=== PATIENT | female | born 1975 | race Caucasian/White ===

== ENCOUNTER 2024-02-26 16:02 | Inpatient (IN) | payer BC ==
[2024-02-26 17:18] LABS: #Basophils 0.13 10x3/uL (0.0-0.2); #Eosinphils 0.43 10x3/uL (0.0-0.5); #Monocytes 0.94 10x3/uL (0.0-1.1); #Neutrophils 8.85 10x3/uL (1.5-8.4); %Basophils 0.9 % (0.0-2.0); %Eosinophils 2.8 % (0.0-6.0); %Lymphocytes 31.4 % (18.0-47.0); %Monocytes 6.2 % (0.0-10.0); %Neutrophils 58.4 % (40.0-75.0); Hematocrit 43.6 % (34.9-44.5); Hemoglobin 15.2 g/dL (12.0-15.5); Mean Corpuscular HGB CONC 34.9 g/dL (32.0-36.0); Mean Corpuscular Hemoglobin 28.8 pg (27.0-33.0); Mean Corpuscular Volume 82.7 fl (81.6-98.3); Mean Platelet Volume 11.7 fl (7.4-10.4); Platelet Count 275 10x3/uL (150-450); RBC Distribution Width 12.9 % (11.5-14.5); Red Blood Cell (RBC) Count 5.27 10x6/uL (3.90-5.03); White Blood Cell (WBC) Count 15.2 10x3/uL (3.5-10.5)
[2024-02-26 17:28] LABS: ALT (SGPT) 39 U/L (8-55); AST (SGOT) 37 U/L (5-34); Albumin 3.4 g/dL (3.5-5.0); Alkaline Phosphatase 511 U/L (40-110); Anion Gap 17 mmol/L (10-20); BUN (Urea Nitrogen) 5 mg/dL (7.0-18.7); Bilirubin, Total 1.1 mg/dL (0.2-1.2); Calc. Creatinine Clearance 0 mL/min (70-130); Calcium 9.7 mg/dL (7.8-10.44); Carbon Dioxide 22 mmol/L (22-29); Chloride 98 mmol/L (98-107); Estimated GFR 86; Globulin 4.7 g/dL (2.4-3.5); Potassium 3.9 mmol/L (3.5-5.1); Protein, Total 8.1 g/dL (6.0-8.3); Sodium 133 mmol/L (136-145)
[2024-02-26 17:32] LABS: Critical Call Chemistry NUR.PA AT 1731; Glucose 463 mg/dL (70-105)
[2024-02-26 19:25] LABS: Analyzer IN Cardio CS ER; Base Excess -2.6 mEq/L (-2 - +2); Calcium, Ionized (venous) 1.18 mmol/L (1.16-1.32); Chloride (VBG) 96 mmol/L (98-106); Critical Notified By: CP.PH; Hematocrit-VBG 49 % (36.0-47.0); Hemoglobin (Hb) 16.6 g/dL (11.7-16.0); Potassium (VBG) 3.87 mmol/L (3.70-5.30); Puncture Site Other Site; RapidComm Collect By CBN; Sodium 135 mmol/L (133-146)
[2024-02-26] MEDS ORDERED: HYDROcodone/Acetaminophen 5/325 mg Tablet ONE (19:39)
[2024-02-26 19:50] LABS: Bilirubin Neg (Negative); Blood, Urine 25 (Negative); Clarity Clear (Clear); Glucose, Urine (Dipstick) >=1000 mg/dL (Negative); Ketone, Urine Negative (Negative); Leukocyte Negative (Negative); Nitrite Negative (Negative); Protein, Urine (Dipstick) 30 mg/dl (Neg-Trace); Urobilinogen Normal mg/dL (Less than 2)
[2024-02-26 20:07] LABS: Bacteria/HPF Rare-Few HPF (None Seen); CAUTI Indications for Culture Pelvic or flank pain; Squamous Epithelial 0-3 HPF (0-3); Yeast-Budding Rare HPF (None Seen)
[2024-02-26 20:10] LABS: Urine Culture Reflex No No
[2024-02-26] MEDS ORDERED: Insulin Regular 300 UNITS/3 ML VIAL ONE (20:47)
[2024-02-26] MEDS ORDERED: Cefepime 2 GM VIAL ONE (21:33)
[2024-02-26] MEDS ORDERED: Lidocaine 1% (PF) 30 ML VIAL ONE (22:35)
[2024-02-26] MEDS ORDERED: Ondansetron PF 4 MG/2 ML Vial IVP PRN (23:53)
[2024-02-26] MEDS ORDERED: Dextrose 5% in Water 1,000 ML IV PRN (23:53)
[2024-02-26] MEDS ORDERED: Calcium Carbonate 500 MG ChewTAB PO PRN (23:53)
[2024-02-26] MEDS ORDERED: Senokot S 8.6-50 MG TAB PO PRN (23:53)
[2024-02-26] MEDS ORDERED: Glucagon 1 MG/ML KIT IM PRN (23:53)
[2024-02-26] MEDS ORDERED: Dextrose 50% Abboject 50 ML SYRINGE SLOW IVP PRN (23:53)
[2024-02-26] MEDS ORDERED: Acetaminophen 325 MG TAB PO PRN (23:53)
[2024-02-27] MEDS: HumaLOG 300 UNITS/3 ML VIAL SC SCH (01:35)
[2024-02-27] MEDS: Lactated Ringer's 1,000 ML IV SCH (01:40)
[2024-02-27 01:53] VITALS: BMI 30.1
[2024-02-27 03:46] LABS: #Eosinphils 0.51 10x3/uL (0.0-0.5); #Monocytes 0.95 10x3/uL (0.0-1.1); #Neutrophils 8.42 10x3/uL (1.5-8.4); %Basophils 0.7 % (0.0-2.0); %Eosinophils 3.6 % (0.0-6.0); %Lymphocytes 29.7 % (18.0-47.0); %Monocytes 6.7 % (0.0-10.0); %Neutrophils 58.9 % (40.0-75.0); Hematocrit 39.8 % (34.9-44.5); Hemoglobin 13.7 g/dL (12.0-15.5); Mean Corpuscular HGB CONC 34.4 g/dL (32.0-36.0); Mean Corpuscular Volume 84.1 fl (81.6-98.3); Mean Platelet Volume 11.7 fl (7.4-10.4); Platelet Count 227 10x3/uL (150-450); RBC Distribution Width 12.8 % (11.5-14.5); Red Blood Cell (RBC) Count 4.73 10x6/uL (3.90-5.03); White Blood Cell (WBC) Count 14.3 10x3/uL (3.5-10.5)
[2024-02-27 04:00] LABS: Anion Gap 13 mmol/L (10-20); BUN (Urea Nitrogen) 8 mg/dL (7.0-18.7); Calc. Creatinine Clearance 137 mL/min (70-130); Calcium 8.7 mg/dL (7.8-10.44); Carbon Dioxide 22 mmol/L (22-29); Chloride 104 mmol/L (98-107); Estimated GFR 107; Glucose 341 mg/dL (70-105); Potassium 3.4 mmol/L (3.5-5.1); Sodium 136 mmol/L (136-145)
[2024-02-27 04:03] LABS: Vancomycin, Random 12.6 ug/mL (See Comment)
[2024-02-27] MEDS: Insulin Regular 300 UNITS/3 ML VIAL SC PRN (05:16)
[2024-02-27] MEDS: Potassium Chloride 20 MEQ TAB PO SCH (05:55)
[2024-02-27 07:56] LABS: Magnesium 1.8 mg/dL (1.6-2.6)
[2024-02-27] MEDS: Enoxaparin 40 MG (0.4 mL) SYRINGE SC SCH (08:09)
[2024-02-27] MEDS: HYDROcodone/Acetaminophen 5/325 mg Tablet PO PRN (08:10)
[2024-02-27] MEDS: Lantus 1000 UNITS/10 ML VIAL SC SCH ×2 (08:10→20:56)
[2024-02-27] MEDS: Amlodipine 5 MG TAB PO SCH (08:11)
[2024-02-27] MEDS: Cefepime 2 GM in Sodium Chloride 0.9% 100 ML IVPB SCH (08:11)
[2024-02-27] MEDS: Rosuvastatin 10 MG TAB PO SCH (08:12)
[2024-02-27 10:17] VITALS: BMI 30.1
[2024-02-27] MEDS: metroNIDAZOLE 500 MG TAB PO SCH (14:45)
[2024-02-27] MEDS: Magnesium 2 GM/50 ML(in water) 2 GM in Premix 1 BAG IVPB SCH (14:45)
[2024-02-27] MEDS: Potassium Bicarbonate/Cit Ac 20 MEQ TAB PO SCH (17:08)
[2024-02-27] MEDS: DULoxetine 30 MG CAP PO SCH (20:36)
[2024-02-27] MEDS: Losartan 50 MG TAB PO SCH (20:36)
[2024-02-27] MEDS ORDERED: Lantus 1000 UNITS/10 ML VIAL SC SCH (21:00)
[2024-02-27] MEDS: Zolpidem Tartrate 5 MG TAB PO SCH (22:34)
[2024-02-28 04:45] LABS: #Basophils 0.05 10x3/uL (0.0-0.2); #Eosinphils 0.56 10x3/uL (0.0-0.5); #Monocytes 0.79 10x3/uL (0.0-1.1); #Neutrophils 5.66 10x3/uL (1.5-8.4); %Basophils 0.5 % (0.0-2.0); %Eosinophils 5.2 % (0.0-6.0); %Lymphocytes 34.6 % (18.0-47.0); %Monocytes 7.3 % (0.0-10.0); %Neutrophils 52.2 % (40.0-75.0); Anion Gap 12 mmol/L (10-20); BUN (Urea Nitrogen) 4 mg/dL (7.0-18.7); Calc. Creatinine Clearance 141 mL/min (70-130); Calcium 8.6 mg/dL (7.8-10.44); Carbon Dioxide 24 mmol/L (22-29); Chloride 103 mmol/L (98-107); Estimated GFR 108; Glucose 296 mg/dL (70-105); Hematocrit 40.3 % (34.9-44.5); Hemoglobin 13.7 g/dL (12.0-15.5); Mean Corpuscular Hemoglobin 28.7 pg (27.0-33.0); Mean Corpuscular Volume 84.5 fl (81.6-98.3); Mean Platelet Volume 11.8 fl (7.4-10.4); Platelet Count 219 10x3/uL (150-450); Potassium 3.5 mmol/L (3.5-5.1); RBC Distribution Width 12.7 % (11.5-14.5); Red Blood Cell (RBC) Count 4.77 10x6/uL (3.90-5.03); Sodium 135 mmol/L (136-145); White Blood Cell (WBC) Count 10.8 10x3/uL (3.5-10.5)
[2024-02-28] MEDS: Lantus 1000 UNITS/10 ML VIAL SC SCH ×2 (12:28→21:11)
[2024-02-28] MEDS: Saccharomyces boulardii 250 MG CAP PO SCH (21:10)
[2024-02-29 05:12] LABS: #Basophils 0.07 10x3/uL (0.0-0.2); #Eosinphils 0.65 10x3/uL (0.0-0.5); #Monocytes 0.98 10x3/uL (0.0-1.1); #Neutrophils 5.47 10x3/uL (1.5-8.4); %Basophils 0.6 % (0.0-2.0); %Eosinophils 5.5 % (0.0-6.0); %Monocytes 8.3 % (0.0-10.0); %Neutrophils 46.3 % (40.0-75.0); Hematocrit 40.6 % (34.9-44.5); Hemoglobin 13.8 g/dL (12.0-15.5); Mean Corpuscular Hemoglobin 28.7 pg (27.0-33.0); Mean Corpuscular Volume 84.4 fl (81.6-98.3); Mean Platelet Volume 11.3 fl (7.4-10.4); Platelet Count 228 10x3/uL (150-450); RBC Distribution Width 12.6 % (11.5-14.5); Red Blood Cell (RBC) Count 4.81 10x6/uL (3.90-5.03); White Blood Cell (WBC) Count 11.8 10x3/uL (3.5-10.5)
[2024-02-29 05:19] LABS: Anion Gap 13 mmol/L (10-20); BUN (Urea Nitrogen) 5 mg/dL (7.0-18.7); Calc. Creatinine Clearance 131 mL/min (70-130); Calcium 9.2 mg/dL (7.8-10.44); Carbon Dioxide 27 mmol/L (22-29); Chloride 101 mmol/L (98-107); Estimated GFR 102; Glucose 209 mg/dL (70-105); Potassium 4.6 mmol/L (3.5-5.1); Sodium 136 mmol/L (136-145)
[2024-02-29 07:50] LABS: Vancomycin, Random 7.1 ug/mL (See Comment)
[2024-02-29] MEDS: Oxacillin 2 GM in Sodium Chloride 0.9% 100 ML IVPB SCH (08:46)
[2024-02-29] MEDS: Ketorolac Tromethamine 30 MG (1 mL) VIAL IVP SCH (09:12)
[2024-02-29] MEDS: Ketorolac Tromethamine 30 MG (1 mL) VIAL IVP PRN (17:42)
[2024-02-29] MEDS: Insulin Regular 300 UNITS/3 ML VIAL SC PRN (20:33)
[2024-03-01 05:03] LABS: #Basophils 0.06 10x3/uL (0.0-0.2); #Eosinphils 0.39 10x3/uL (0.0-0.5); #Monocytes 0.59 10x3/uL (0.0-1.1); #Neutrophils 3.57 10x3/uL (1.5-8.4); %Basophils 0.7 % (0.0-2.0); %Eosinophils 4.9 % (0.0-6.0); %Lymphocytes 42.3 % (18.0-47.0); %Monocytes 7.4 % (0.0-10.0); %Neutrophils 44.5 % (40.0-75.0); Hematocrit 39.1 % (34.9-44.5); Hemoglobin 13.2 g/dL (12.0-15.5); Mean Corpuscular HGB CONC 33.8 g/dL (32.0-36.0); Mean Corpuscular Hemoglobin 28.6 pg (27.0-33.0); Mean Corpuscular Volume 84.6 fl (81.6-98.3); Mean Platelet Volume 11.3 fl (7.4-10.4); Platelet Count 211 10x3/uL (150-450); Red Blood Cell (RBC) Count 4.62 10x6/uL (3.90-5.03)
[2024-03-01 05:06] LABS: Anion Gap 11 mmol/L (10-20); BUN (Urea Nitrogen) 7 mg/dL (7.0-18.7); Calc. Creatinine Clearance 121 mL/min (70-130); Calcium 9.1 mg/dL (7.8-10.44); Carbon Dioxide 28 mmol/L (22-29); Chloride 103 mmol/L (98-107); Estimated GFR 93; Glucose 314 mg/dL (70-105); Potassium 4.3 mmol/L (3.5-5.1); Sodium 138 mmol/L (136-145)
[2024-03-01] MEDS ORDERED: Ketorolac Tromethamine 30 MG (1 mL) VIAL IVP PRN (09:03)
[2024-03-02 04:25] LABS: #Basophils 0.07 10x3/uL (0.0-0.2); #Eosinphils 0.57 10x3/uL (0.0-0.5); #Neutrophils 3.64 10x3/uL (1.5-8.4); %Basophils 0.8 % (0.0-2.0); %Eosinophils 6.6 % (0.0-6.0); %Lymphocytes 43.1 % (18.0-47.0); %Neutrophils 42.2 % (40.0-75.0); Hematocrit 41.9 % (34.9-44.5); Hemoglobin 14.3 g/dL (12.0-15.5); Mean Corpuscular HGB CONC 34.1 g/dL (32.0-36.0); Mean Corpuscular Hemoglobin 28.9 pg (27.0-33.0); Mean Corpuscular Volume 84.8 fl (81.6-98.3); Mean Platelet Volume 11.5 fl (7.4-10.4); Platelet Count 233 10x3/uL (150-450); RBC Distribution Width 12.8 % (11.5-14.5); Red Blood Cell (RBC) Count 4.94 10x6/uL (3.90-5.03); White Blood Cell (WBC) Count 8.6 10x3/uL (3.5-10.5)
[2024-03-02 04:29] LABS: Anion Gap 14 mmol/L (10-20); BUN (Urea Nitrogen) 4 mg/dL (7.0-18.7); Calc. Creatinine Clearance 143 mL/min (70-130); Calcium 9.3 mg/dL (7.8-10.44); Carbon Dioxide 24 mmol/L (22-29); Chloride 102 mmol/L (98-107); Estimated GFR 108; Glucose 278 mg/dL (70-105); Potassium 3.8 mmol/L (3.5-5.1); Sodium 136 mmol/L (136-145)
[2024-03-03] MEDS: fentaNYL 50 mcg/mL 1 mL Vial SLOW IVP SCH (08:28)
[2024-03-03] MEDS ORDERED: Lantus 1000 UNITS/10 ML VIAL SC SCH ×2 (10:11→10:30)
[2024-03-03] MEDS: Lantus 1000 UNITS/10 ML VIAL SC SCH ×2 (13:08→20:14)
[2024-03-03] MEDS: HumaLOG 300 UNITS/3 ML VIAL SC SCH (15:16)
[2024-03-03] MEDS: Oxacillin 2 GM in Sodium Chloride 0.9% 100 ML IVPB SCH ×2 (15:17→23:32)
[2024-03-05 04:05] LABS: Anion Gap 14 mmol/L (10-20); BUN (Urea Nitrogen) 4 mg/dL (7.0-18.7); Calc. Creatinine Clearance 155 mL/min (70-130); Calcium 9.3 mg/dL (7.8-10.44); Carbon Dioxide 24 mmol/L (22-29); Chloride 103 mmol/L (98-107); Estimated GFR 110; Glucose 179 mg/dL (70-105); Potassium 3.3 mmol/L (3.5-5.1); Sodium 138 mmol/L (136-145)
[2024-03-05 04:08] LABS: #Basophils 0.09 10x3/uL (0.0-0.2); #Eosinphils 0.46 10x3/uL (0.0-0.5); #Monocytes 0.67 10x3/uL (0.0-1.1); #Neutrophils 4.69 10x3/uL (1.5-8.4); %Basophils 0.8 % (0.0-2.0); %Monocytes 5.9 % (0.0-10.0); Hematocrit 41.4 % (34.9-44.5); Hemoglobin 14.1 g/dL (12.0-15.5); Mean Corpuscular HGB CONC 34.1 g/dL (32.0-36.0); Mean Corpuscular Hemoglobin 28.7 pg (27.0-33.0); Mean Corpuscular Volume 84.1 fl (81.6-98.3); Mean Platelet Volume 10.9 fl (7.4-10.4); Platelet Count 265 10x3/uL (150-450); Red Blood Cell (RBC) Count 4.92 10x6/uL (3.90-5.03); White Blood Cell (WBC) Count 11.4 10x3/uL (3.5-10.5)
[2024-03-05] MEDS: Potassium Chloride 20 MEQ TAB PO SCH (09:25)
[2024-03-05] MEDS: Oxacillin 2 GM in Sodium Chloride 0.9% 100 ML IVPB SCH (13:21)
[2024-03-06 03:46] LABS: Anion Gap 11 mmol/L (10-20); BUN (Urea Nitrogen) 5 mg/dL (7.0-18.7); Calc. Creatinine Clearance 147 mL/min (70-130); Calcium 9.5 mg/dL (7.8-10.44); Carbon Dioxide 27 mmol/L (22-29); Chloride 104 mmol/L (98-107); Estimated GFR 109; Glucose 217 mg/dL (70-105); Potassium 3.6 mmol/L (3.5-5.1); Sodium 138 mmol/L (136-145)
[2024-03-06 03:54] LABS: Mean Corpuscular Volume 86.8 fl (81.6-98.3)
[2024-03-06 03:55] LABS: #Basophils 0.06 10x3/uL (0.0-0.2); #Eosinphils 0.32 10x3/uL (0.0-0.5); #Monocytes 0.74 10x3/uL (0.0-1.1); #Neutrophils 4.43 10x3/uL (1.5-8.4); %Basophils 0.6 % (0.0-2.0); %Eosinophils 3.5 % (0.0-6.0); %Lymphocytes 39.7 % (18.0-47.0); %Neutrophils 47.9 % (40.0-75.0); Hematocrit 42.1 % (34.9-44.5); Hemoglobin 13.9 g/dL (12.0-15.5); Mean Corpuscular Hemoglobin 28.7 pg (27.0-33.0); Mean Platelet Volume 10.7 fl (7.4-10.4); Platelet Count 256 10x3/uL (150-450); RBC Distribution Width 13.1 % (11.5-14.5); Red Blood Cell (RBC) Count 4.85 10x6/uL (3.90-5.03); White Blood Cell (WBC) Count 9.3 10x3/uL (3.5-10.5)
[2024-03-06 09:33] VITALS: BP 130/66; TEMP 98.5
[2024-03-06] MEDS: cefTRIAXone\\ROCEPHIN 2 GM in Sodium Chloride 0.9% 100 ML IVPB SCH (11:04)
== END 2024-03-06 12:15 | disposition home health service (06) | DRG 872 ==
LOC: CSHERS 16:02 → CSHTELE 23:57
PROVIDERS: ADMIT Student in an Organized Health Care Education/Training Program; ATTEND Family Medicine
PROC: 0H9T3ZX Drainage of Right Breast, Percutaneous Approach, Diagnostic (ICD-10-PCS; principal; 2024-02-26)
PROC: 02HV33Z Insertion of Infusion Device into Superior Vena Cava, Percutaneous Approach (ICD-10-PCS; 2024-03-05)
DX: A41.01 Sepsis due to Methicillin susceptible Staphylococcus aureus (principal); I10 Essential (primary) hypertension; E78.5 Hyperlipidemia, unspecified; F31.9 Bipolar disorder, unspecified; N61.0 Mastitis without abscess; E10.65 Type 1 diabetes mellitus with hyperglycemia; E87.6 Hypokalemia; E83.42 Hypomagnesemia; F41.9 Anxiety disorder, unspecified; N61.1 Abscess of the breast and nipple; Z87.891 Personal history of nicotine dependence; Z79.4 Long term (current) use of insulin; Z79.899 Other long term (current) drug therapy
CPT/HCPCS: 36415; 36416; 36569; 76937; 76999; 77001; 80048; 80053; 80202; 81001; 82010; 82805; 83605; 83735; 85025; 86140; 87040; 87070; 87077; 87081; 87186; 87205; 96374; 96375; 97139; C1751; J0692; J0696; J1650; J1815; J1885; J2001; J2700; J3010; J3370; J3475; J3490; J7030; J7050; J7120

== ENCOUNTER 2024-07-04 02:20 | Emergency (ER) | payer BC ==
[2024-07-04] MEDS ORDERED: HYDROmorphone 0.5 MG/0.5 ML SYRINGE ONE (03:06)
[2024-07-04] MEDS ORDERED: Ketorolac Tromethamine 30 MG (1 mL) VIAL ONE (03:19)
== END 2024-07-04 05:16 | disposition home or self-care (01) ==
LOC: CSHERS 02:20
DX: S42.255A Nondisplaced fracture of greater tuberosity of left humerus, initial encounter for closed fracture (principal); E10.9 Type 1 diabetes mellitus without complications; F17.210 Nicotine dependence, cigarettes, uncomplicated; Z79.4 Long term (current) use of insulin; W10.9XXA Fall (on) (from) unspecified stairs and steps, initial encounter
CPT/HCPCS: 96374; 96375; J1170; J1885